=== PATIENT | male | born 1940 | race Caucasian/White ===

== ENCOUNTER 2016-05-03 11:31 | Inpatient (IN) | payer MEDICARE, BC ==
[2016-05-03] MEDS ORDERED: SODIUM CHLORIDE 0.9% 1,000 ML IV STA ×2 (12:28)
[2016-05-03] MEDS ORDERED: ONDANSETRON 4 MG/2 ML VIAL IVP STA (12:28)
[2016-05-03] MEDS ORDERED: PANTOPRAZOLE 40 MG/10 ML VIAL IVP STA (12:28)
[2016-05-03] MEDS ORDERED: HYDROmorphone 1 MG/ML 1 ML SYRINGE IVP STA (12:28)
[2016-05-03 13:02] LABS: Basophils % (A) 0 %; CH 30.5; Eosinophils # (A) 0.1 k/uL (0-0.7); Eosinophils % (A) 1 %; HCT 43.7 % (39.0-53.0); HDW 2.56; HGB 14.1 gm/dL (13.0-17.5); Luc % (Auto) 1; Lymphocytes # (A) 0.4 k/uL (1.0-4.8); Lymphocytes % (A) 2 %; MCHC 32.3 g/dL (31.0-37.0); MCV 95.8 fL (80.0-100.0); Monocytes # (A) 0.7 k/uL (0-1.0); Monocytes % (A) 5 %; Neutrophils # (A) 12.9 k/uL (1.3-7.7); Neutrophils % (A) 91 %; RBC 4.56 m/uL (4.30-5.90); RDW 12.4 % (11.5-15.5); WBC 14.2 k/uL (3.8-10.6); WBC (Perox) 14.66
[2016-05-03 13:11] LABS: INR 1.2 (<1.1); Prothrombin Time 12.3 sec (9.0-12.0)
[2016-05-03 13:12] LABS: ALT 38 U/L (21-72); AST 20 U/L (17-59); Alkaline Phosphatase 127 U/L (38-126); Amylase <30 U/L (30-110); Anion Gap 13 mmol/L; Blood Urea Nitrogen 44 mg/dL (9-20); Calcium 12.2 mg/dL (8.4-10.2); Carbon Dioxide 27 mmol/L (22-30); Chloride 97 mmol/L (98-107); Glucose 323 mg/dL (74-99); Non-African American GFR(MDRD) 52 (>60 ml/min/1.73 sqM); Potassium 4.5 mmol/L (3.5-5.1); Sodium 137 mmol/L (137-145); Total Bilirubin 0.7 mg/dL (0.2-1.3); Total Protein 5.8 g/dL (6.3-8.2)
--- NOTE | 2016-05-03 13:13 | ED ---
General Adult HPI - General Chief complaint: Abdominal Pain Stated complaint: poss Bowel Obstruction Time Seen by Provider: 05/03/16 11:54 Source: patient, family, EMS, RN notes reviewed, old records reviewed Mode of arrival: EMS Limitations: no limitations - History of Present Illness Initial comments: Chief complaint history of present illness is a 75-year-old male who within the past several weeks is a cholecystectomy. Because of persistent abdominal pain a CAT scan with contrast was done which revealed probable pancreatic cancer with metastatic lesions to the liver. The patient's been on opiates for pain of both recent surgery and intestinal cramping from constipation. The patient' s not obstipated. No bowel movement for approximately one week. Abdomen is more bloated. - Related Data Home Medications Medication Instructions Recorded Confirmed Atorvastatin [Lipitor] 40 mg PO HS 04/08/16 05/03/16 Insulin Detemir [Levemir Flextouch] 24 units SQ HS 04/08/16 05/03/16 LORazepam [Ativan] 1 mg PO HS 04/08/16 05/03/16 Metoprolol Succinate (ER) [Toprol 25 mg PO DAILY 04/08/16 05/03/16 XL] Nitroglycerin Sl Tabs [Nitrostat] 0.4 mg SUBLINGUAL Q5M PRN 04/08/16 05/03/16 Terazosin [Hytrin] 5 mg PO HS 04/08/16 05/03/16 Valsartan/Hydrochlorothiazide 1 tab PO DAILY 04/08/16 05/03/16 [Valsartan-Hctz 80-12.5 mg Tab] Sennosides-Docusate Sodium 2 tab PO BID 05/03/16 05/03/16 [Senokot-S] Previous Rx's Medication Instructions Recorded Pantoprazole Sodium [Protonix] 40 mg PO DAILY #30 tablet. 04/25/16 HYDROcodone/APAP [[place] Elixir 15 ml PO Q4HR PRN #500 ml 04/28/16 7.5-325Mg/15Ml] Polyethylene Glycol 3350 [Miralax] 17 gm PO DAILY PRN #15 packet 04/28/16 traMADol HCl [Ultram] 50 mg PO QID PRN #30 tab 04/28/16 Ondansetron Odt [Zofran Odt] 4 mg PO Q8HR PRN #30 tab 04/29/16 Allergies Allergy/AdvReac Type Severity Reaction Status Date / Time hydrocodone [From [place]] AdvReac Hallucinati Verified 05/03/16 11:36 ons Review of Systems ROS Statement: Those systems with pertinent positive or pertinent negative responses have been documented in the HPI. Review of systems. The patient is pale he's taken significant turn for the worse per his family in the last 2 days. Continues with abdominal pain no bowel movements. Not eating or drinking appears to be dehydrated. Very weak and unable to stand or get up. Complains of chronic back pain from laying down constantly. The patient has an appointment to follow-up at [facility] in 2 days but does not feel he can go all systems reviewed. Past medical problems significant for being a former smoker. Also coronary disease, diabetes mellitus, hyperlipidemia, hypertension previous [place]. Enlarged prostate. Patient's surgeries include cholecystectomy several weeks ago had a cardiac bypass. Heart catheterizations. Family history not respiratory. ROS Other: All systems not noted in ROS Statement are negative. Past Medical History Past Medical History: Coronary Artery Disease (CAD), Diabetes Mellitus, Hyperlipidemia, Hypertension, Myocardial Infarction ([place]) Additional Past Medical History / Comment(s): ,ENLARGED PROSTATE,MAC DEGENERATION, PAST CONCUSSIONS,HAS HAD A SHINGLE VACCINE APPROX 2012 CONSTIPATED -PT STATED NO BM SINCE SX 04-08-16. STATED"LOST 10# SINCE SX ON 04-08-16 Last Myocardial Infarction Date:: 13 YEARS AGO History of Any Multi-Drug Resistant Organisms: None Reported Past Surgical History: Cholecystectomy, Coronary Bypass/CABG Additional Past Surgical History / Comment(s): HEART CATHS AND 6 OR 7 STENTS BEFORE CABG IN 2002. PT STATED THAT AFTER CABG HAS TO BE "CARDIOVERTED", JESSE CATARACTS, SHOTS IN EYES FOR MAC DEGENRATION, COLONOSCOPY/POLYPECTOMY(BENIGN) Past Anesthesia/Blood Transfusion Reactions: Unable to Obtain Additional Past Anesthesia/Blood Transfusion Reaction / Comment(s): CLAUSTERPHOBIA Date of Last Stent Placement:: UNK Past Psychological History: No Psychological Hx Reported Additional Psychological History / Comment(s): PT LIVES WITH , IS INDEPENDANT. SERVED IN THE [employer]. 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 Smoking Status: Former smoker Past Alcohol Use History: None Reported Additional Past Alcohol Use History / Comment(s): STARTED SMOKING AGE 13, QUIT 1981 WAS SMOKING 2 PPD.QUIT ETOH 1981 Past Drug Use History: None Reported - Past Family History Father Family Medical History: Unable to Obtain Additional Family Medical History / Comment(s): PT WAS ADOPTED Mother Family Medical History: Unable to Obtain Additional Family Medical History / Comment(s): PT WAS ADOPTED General Exam - General Exam Comments Initial Comments: General: The patient is awake and alert, appears pale and uncomfortable. Appears dehydrated. Vital signs show temperature 97.0 pulse 93 respiratory rate 20 pulse ox 90% room air blood pressure 174/74. Elevated systolic noted. Eye: Pupils are equal, round and reactive to light, extra-ocular movements are intact ; there is normal conjunctiva bilaterally. No signs of icterus. Ears, nose, mouth and throat: Dry mucous membranes. Neck: No complaint of neck pain. Cardiovascular: No murmur appreciated. Heart rate 93. Respiratory: Lungs are clear to auscultation, respirations are non-labored, breath sounds are equal. No wheezes, stridor, rales, or rhonchi. Gastrointestinal: Abdomen is bloated, tender. The trocar sites all appear to be normal no signs of infection. Hypoactive bowel sounds. Guarding with palpation of the abdomen. Back: Complains of back pain from staying in bed for one week. Unable to get himself out of bed needs help. Musculoskeletal: Normal ROM, no tenderness, There is no pedal edema. There is no calf tenderness or swelling. Sensation intact. Pulses equal bilaterally 2+. Neurological: Neurologically no deficits noted. Skin: Pale skin Limitations: no limitations Course Vital Signs 05/03/16 05/03/16 05/03/16 11:40 13:57 14:17 Temperature 97 F L 98.2 F Pulse Rate 93 67 82 Respiratory 20 18 18 Rate Blood Pressure 174/74 157/70 163/71 O2 Sat by Pulse 94 L 94 L 94 L Oximetry Medical Decision Making - Medical Decision Making X-rays of the abdomen were done and reviewed radiologist's his impression is there are multiple gas filled distended loops of small bowel in the mid abdomen. There is blunting of the costophrenic angles. There is no sign of free air. There are no pathologic calcifications over the kidneys. Conclusion ; dilated small bowel in the mid abdomen consistent with ileus or partial mechanical obstruction. A large bowel gas pattern is normal. Abnormal small bowel appears new compared to last exam. As read by Dr. Wong Labs show white count of 14 hemoglobin 14 hematocrit of 43, INR 1.2, potassium 4.5, BUN 44 creatinine 1. three fourths GFR 52. Glucose is 323. Amylase lipase normal limits. The case discussed with Dr. Dr. Diaz on-call for Dr. dr mayer. Patient be admitted to medicine. He recommends NG tube and enemas for obstipation. - Lab Data Result diagrams: 05/03/16 12:43 05/03/16 12:43 Lab Results 05/03/16 05/03/16 05/03/16 Range/Units 12:43 12:43 12:43 WBC 14.2 H (3.8-10.6) k/uL RBC 4.56 (4.30-5.90) m/uL Hgb 14.1 (13.0-17.5) gm/dL Hct 43.7 (39.0-53.0) % MCV 95.8 (80.0-100.0) fL MCH 31.0 (25.0-35.0) pg MCHC 32.3 (31.0-37.0) g/dL RDW 12.4 (11.5-15.5) % Plt Count 124 L (150-450) k/uL Neutrophils % 91 % Lymphocytes % 2 % Monocytes % 5 % Eosinophils % 1 % Basophils % 0 % Neutrophils # 12.9 H (1.3-7.7) k/uL Lymphocytes # 0.4 L (1.0-4.8) k/uL Monocytes # 0.7 (0-1.0) k/uL Eosinophils # 0.1 (0-0.7) k/uL Basophils # 0.0 (0-0.2) k/uL PT (9.0-12.0) sec INR (<1.1) Sodium 137 (137-145) mmol/L Potassium 4.5 (3.5-5.1) mmol/L Chloride 97 L (98-107) mmol/L Carbon Dioxide 27 (22-30) mmol/L Anion Gap 13 mmol/L BUN 44 H (9-20) mg/dL Creatinine 1.34 H (0.66-1.25) mg/dL Est GFR (MDRD) Af Amer >60 (>60 ml/min/1.73 sqM) Est GFR (MDRD) Non-Af 52 (>60 ml/min/1.73 sqM) Glucose 323 H (74-99) mg/dL Plasma Lactic Acid [place]dy 1.6 (0.7-2.0) mmol/L Calcium 12.2 H (8.4-10.2) mg/dL Total Bilirubin 0.7 (0.2-1.3) mg/dL AST 20 (17-59) U/L ALT 38 (21-72) U/L Alkaline Phosphatase 127 H (38-126) U/L Ammonia <9 (<30) umol/L Total Protein 5.8 L (6.3-8.2) g/dL Albumin 2.5 L (3.5-5.0) g/dL Amylase <30 L (30-110) U/L Lipase 12 L (23-300) U/L 05/03/16 Range/Units 12:43 WBC (3.8-10.6) k/uL RBC (4.30-5.90) m/uL Hgb (13.0-17.5) gm/dL Hct (39.0-53.0) % MCV (80.0-100.0) fL MCH (25.0-35.0) pg MCHC (31.0-37.0) g/dL RDW (11.5-15.5) % Plt Count (150-450) k/uL Neutrophils % % Lymphocytes % % Monocytes % % Eosinophils % % Basophils % % Neutrophils # (1.3-7.7) k/uL Lymphocytes # (1.0-4.8) k/uL Monocytes # (0-1.0) k/uL Eosinophils # (0-0.7) k/uL Basophils # (0-0.2) k/uL PT 12.3 H (9.0-12.0) sec INR 1.2 (<1.1) Sodium (137-145) mmol/L Potassium (3.5-5.1) mmol/L Chloride (98-107) mmol/L Carbon Dioxide (22-30) mmol/L Anion Gap mmol/L BUN (9-20) mg/dL Creatinine (0.66-1.25) mg/dL Est GFR (MDRD) Af Amer (>60 ml/min/1.73 sqM) Est GFR (MDRD) Non-Af (>60 ml/min/1.73 sqM) Glucose (74-99) mg/dL Plasma Lactic Acid [place]dy (0.7-2.0) mmol/L Calcium (8.4-10.2) mg/dL Total Bilirubin (0.2-1.3) mg/dL AST (17-59) U/L ALT (21-72) U/L Alkaline Phosphatase (38-126) U/L Ammonia (<30) umol/L Total Protein (6.3-8.2) g/dL Albumin (3.5-5.0) g/dL Amylase (30-110) U/L Lipase (23-300) U/L Disposition Clinical Impression: Obstipation, History of recent surgery, Pancreatic tumor Disposition: ADMITTED IP TO THIS [facility] Condition: Serious
[2016-05-03 13:22] LABS: Ammonia <9 umol/L (<30)
--- NOTE | 2016-05-03 14:07 | XR ---
EXAMINATION TYPE: XR abdomen 2V DATE OF EXAM: 05/03/2016 1:20 PM COMPARISON: 04/23/2016 HISTORY: Abdominal pain Technique 3 views Findings: There are multiple gas-filled distended loops of small bowel in the midabdomen. There is bl unting of the costophrenic angles. There is no sign of free air. There are no pathologic calcificatio ns over the kidneys. Conclusion: Dilated small bowel in the midabdomen consistent with ileus or partial mechanical obstruc tion. The large bowel gas pattern is normal. Abnormal small bowel appears new compared to last exam.
[2016-05-03] MEDS ORDERED: LORazepam 2 MG/ML SYRINGE IV STA (14:18)
[2016-05-03] MEDS ORDERED: ONDANSETRON 4 MG/2 ML VIAL IVP PRN (15:02)
[2016-05-03] MEDS ORDERED: NALOXONE 0.4 MG/ML 1 ML VIAL IV PRN (15:02)
[2016-05-03 16:13] LABS: Appearance,Urine Clear (Clear); Bilirubin,Urine Negative (Negative); Glucose,Urine (UA) 3+ (Negative); Ketones,Urine 1+ (Negative); Leukocyte Esterase,Urine Negative (Negative); Mucus,Urine Rare /hpf; Nitrite,Urine Negative (Negative); PH, Urine 5.5 (5.0-8.0); Particle Count 6552; Protein,Urine 1+ (Negative); RBC,Urine 3 /hpf (0-5); Specific Gravity,Urine 1.022 (1.001-1.035); Squamous Epithelial Cell,Urine <1 /hpf (0-4); UA Billing (MACRO vs. MICRO) MICRO; Urobilinogen,Urine <2.0 mg/dL (<2.0); WBC,Urine 1 /hpf (0-5)
[2016-05-03 17:20] LABS: Glucose,Whole Blood 290 mg/dL (75-99)
[2016-05-03] MEDS: SODIUM CHLORIDE 0.9% 1,000 ML IV SCH (17:37)
[2016-05-03] MEDS: LORazepam 2 MG/ML SYRINGE IV PRN ×2 (17:37→23:51)
[2016-05-03] MEDS ORDERED: NA PHOS,M-B/NA PHOS,DI-BA 133 ML ENEMA RECTAL ONE (17:57)
[2016-05-03] MEDS: INSULIN LISPRO (humaLOG) 300 UNIT/3 ML VIAL SQ SCH (18:19)
[2016-05-03] MEDS: HYDROmorphone 1 MG/ML 1 ML SYRINGE IV PRN (18:30)
[2016-05-03 22:16] LABS: Glucose,Whole Blood 265 mg/dL (75-99)
[2016-05-03] MEDS ORDERED: RX INFO: IV CONTRAST WAS GIVEN 1 EACH MISC MISCELLANE PRN (23:26)
[2016-05-04] MEDS: INSULIN LISPRO (humaLOG) 300 UNIT/3 ML VIAL SQ SCH ×3 (00:07→12:19)
[2016-05-04 00:22] LABS: Glucose,Whole Blood 243 mg/dL (75-99)
[2016-05-04] MEDS ORDERED: cloNIDine HCL 0.1 MG TAB PO PRN (00:30)
[2016-05-04] MEDS ORDERED: LEVOFLOXACIN 500MG-D5W PMX 500 MG in DEXTROSE/WATER 1 100ML.BAG IVPB SCH (00:30)
[2016-05-04] MEDS ORDERED: hydrALAZINE HCL 20 MG/ML 1 ML VIAL IVP PRN (00:30)
[2016-05-04] MEDS: HYDROmorphone 1 MG/ML 1 ML SYRINGE IV PRN ×2 (01:26→11:05)
[2016-05-04] MEDS: HEPARIN SODIUM,PORCINE 5,000 UNIT/ML 1 ML VIAL SQ SCH ×2 (01:31→08:17)
[2016-05-04] MEDS: SODIUM CHLORIDE 0.9% 1,000 ML IV SCH ×2 (01:32→11:21)
--- NOTE | 2016-05-04 01:32 | CT ---
EXAMINATION TYPE: CT brain wo con DATE OF EXAM: 05/04/2016 1:28 AM COMPARISON: NONE HISTORY: AMS CT DLP: 1064.30 mGycm Automated exposure control for dose reduction was used. FINDINGS: There is mild cerebral cortical atrophy. There is no mass effect nor midline shift. There is no sign of intracranial hemorrhage. The calvarium is intact. IMPRESSION: Negative unenhanced head CT scan. Mild cerebral atrophy.
--- NOTE | 2016-05-04 01:38 | CT ---
EXAMINATION TYPE: CT abdomen pelvis w con DATE OF EXAM: 05/04/2016 1:28 AM COMPARISON: 04/23/2016 HISTORY: ileus, history of CA CT DLP: 2279.00 mGycm Automated exposure control for dose reduction was used. TECHNIQUE: Helical acquisition of images was performed from the lung bases through the pelvis. CONTRAST: Performed without Oral Contrast and with IV Contrast, patient injected with 80 mL of Visipaque 320. FINDINGS: There are patchy infiltrates and consolidation at the posterior lung bases. There are small pleural e ffusions. There is atherosclerotic vascular calcification. There is a moderate amount of ascites flui d throughout the abdomen. There is a Palomo catheter in the urinary bladder. Liver is relatively small and consistent with cirrhosis. Spleen appears normal. The tail of the pancr eas is not well defined. There could be a low-density mass in the tail of the pancreas. Bile ducts are not dilated. There is a clip from cholecystectomy. There is no definite adrenal mass. Kidneys show satisfactory contrast opacification. There is no hydronephrosis. There is no retroperito darryl adenopathy. There is no sign of free air. There is atherosclerotic calcification in the abdomina l aorta and iliac arteries. There is probably hemodynamically significant stenosis in the iliac arter ies. There is a 1 cm cortical cyst on the medial right kidney. IMPRESSION: THERE ARE BILATERAL PLEURAL EFFUSIONS WITH BASILAR PATCHY CONSOLIDATION AND ATELECTASIS THAT IS SIGNI FICANTLY WORSE THAN LAST EXAM. THERE IS A LARGE AMOUNT OF ASCITES FLUID AND PROBABLE CIRRHOSIS. POSSIBLE LOW DENSITY 6 CM MASS IN THE TAIL OF THE PANCREAS OR INVOLVING THE GREATER CURVATURE OF THE STOMACH. NO FREE AIR. NO EVIDENCE OF A BOWEL OBSTRUCTION. THE ASCITES FLUID IS INCREASED SIGNIFICANTLY COMPARE D TO LAST EXAM.
--- NOTE | 2016-05-04 01:39 | XR ---
EXAMINATION TYPE: XR chest 1V portable DATE OF EXAM: 05/04/2016 1:27 AM COMPARISON: NONE HISTORY: Short of breath TECHNIQUE: Single frontal view of the chest is obtained. FINDINGS: There is pulmonary vascular congestion. There is poor inspiration with some blunting of co stophrenic angles. There are sternal wires. IMPRESSION: Congestive heart failure with basilar atelectasis and probable pleural effusions. Cardio megaly.
[2016-05-04 06:17] LABS: Glucose,Whole Blood 237 mg/dL (75-99)
[2016-05-04] MEDS: LORazepam 2 MG/ML SYRINGE IV PRN ×2 (06:26→13:35)
[2016-05-04 07:39] LABS: Glucose,Whole Blood 234 mg/dL (75-99)
[2016-05-04 07:41] VITALS: BP 110/85; PULSE 91; RESP 20; TEMP 97.8
[2016-05-04] MEDS ORDERED: PANTOPRAZOLE 40 MG/10 ML VIAL IV SCH (09:00)
[2016-05-04] MEDS ORDERED: METOPROLOL SUCCINATE (ER) 25 MG TAB.ER.24H PO SCH (09:00)
[2016-05-04 09:03] LABS: ALT 38 U/L (21-72); AST 38 U/L (17-59); Alkaline Phosphatase 115 U/L (38-126); Amylase <30 U/L (30-110); Anion Gap 11 mmol/L; Blood Urea Nitrogen 45 mg/dL (9-20); Calcium 12.2 mg/dL (8.4-10.2); Carbon Dioxide 25 mmol/L (22-30); Chloride 103 mmol/L (98-107); Glucose 248 mg/dL (74-99); Non-African American GFR(MDRD) 54 (>60 ml/min/1.73 sqM); Potassium 4.2 mmol/L (3.5-5.1); Sodium 139 mmol/L (137-145); Total Bilirubin 0.5 mg/dL (0.2-1.3); Total Protein 5.2 g/dL (6.3-8.2)
--- NOTE | 2016-05-04 11:26 | P.CON ---
Consult Note - . Consult date: 05/04/16 Assessment/Plan:: The patient is 75-year-old white female who according to the has been quite ill for almost a month now. He had a laparoscopic cholecystectomy done by Dr. Salter for cholelithiasis on 04/08/2016. The states he just did not recover well subsequently. Had no appetite nausea was present with the continued abdominal pain. He was readmitted on around 1222 had an ERCP on 1225 which showed no evidence of any leakage from his bile duct obstruction. A CT at that time did show a mass in the tail of the pancreas with what looked like liver metastases. He was discharged a few days later feeling better. His states however he had not had a bowel movement for over a week. He is continued to decline. He's had increasing abdominal pain. Also nausea and continued constipation. He is quite sedated but he states he did pass a little flatus over the last several days. Also has had some shortness of breath. He had a repeat CT of his abdomen and pelvis last night which showed a lot more ascites compared to his previous computed tomography scan several weeks ago. Also it confirms the mass in the tail of the pancreas. Liver looked cirrhotic. There was no definite evidence of bowel obstruction on the computed tomography scan although his plain films showed some dilated loops of small bowel. There was no real evidence of fecal impaction on is plain films or the computed tomography scan. He did receive some enemas so since she was admitted last night but apparently there has been no results. There was no free air noted on his plain films on his computed tomography scan. Past history: Well documented. After disease status post stent placement and then subsequent CABG. Also diabetes mellitus. Medications as listed. Systems review: Not really obtainable from patient. He is not very responsive. May be sedated from some Ativan about 45 hours ago. He however denies any chest pain. Does complain of abdominal pain. Has a Palomo catheter in place. Physical examination: Patient is well-built somewhat overweight with a BMI of 30.8 kg/m. Does not appear to be jaundiced. However is a little dehydrated. Temperature was 98 9. Heart rate 104 minutes. Blood pressure 112/72. No neck masses. Abdomen is somewhat distended. Has a small hematoma at his lateral port site. Diffusely tender. Dry sterile grab my hand when I try to palpate his abdomen. Much guarding. Port sites otherwise all healed nicely. No evidence of infection. No definite mass palpable. Rectal reveals no mass or evidence of impaction. WBC is elevated at 14,200. Bilirubin is normal. Calcium is elevated. The urine and creatinine are elevated. CT as above. Impression possible sepsis.. Tender and painful lower abdomen not sure as to the etiology particularly with the normal ERCP 2 weeks ago. Ascites. Pancreatic mass with possible liver metastases probably malignant. Constipation. Ileus. Doubt obstruction. Multiple medical issues as described above. Dehydration. Renal failure. Hyperglycemia. Recommendation: Continue with the IV fluids for rehydration and IV antibiotics. Discussed with family would like the patient be transferred to a tertiary center. They in fact have an appointment at [facility] in 2 days. However I think the patient is ill enough to be transferred soon for further management and workup. We will therefore hold off with the nasogastric tube further enemas since he did not have much of a response last night.
[2016-05-04 12:06] LABS: Glucose,Whole Blood 233 mg/dL (75-99)
[2016-05-04 12:11] VITALS: BMI 30.8
[2016-05-04 12:24] LABS: Hemoglobin A1C 8.4 % (4.2-6.1)
--- NOTE | 2016-05-04 12:25 | HP ---
DATE OF ADMISSION: 05/03/2016 CHIEF COMPLAINT: Abdominal pain and bowel obstruction and constipation. HISTORY OF PRESENT ILLNESS: This 75-year-old gentleman with a past medical history of multiple medical problems such as coronary artery disease, history of diabetes, hypertension, hyperlipidemia, history of myocardial infarction, being followed by Dr. Karol Maria in the outpatient setting, recently had a cholecystectomy. Subsequently patient was admitted with features of abdominal ascites highly suspicious of pancreatic cancer. ERCP was recommended. The patient was referred to [facility]. Apparently the patient was developing obstipation and progressive abdominal distention. The patient came to [facility] and was admitted for further evaluation and treatment. Plain x-rays of the abdomen were suggestive of partial small bowel obstruction. The patient was admitted for further evaluation and treatment. The patient also was found to be confused at this time. The patient is incoherent, most of the history is obtained from discussion with staff as well as review of chart. PAST MEDICAL HISTORY: CAD, history of diabetes mellitus, hypertension, recently diagnosed possible pancreatic cancer, claustrophobia, cholecystectomy. Medications prior to admission include: 1. Ultram 50 mg q.i.d. p.r.n. 3. Hytrin 5 mg at bedtime. 4. Senokot 2 tablets p.o. b.i.d. 6. Protonix 40 mg daily. 7. Zofran 4 mg every 8 p.r.n. 8. Nitrostat 0.4 sublingual p.r.n. 9. Toprol XL 25 mg daily. 10. Ativan 1 mg at bedtime. 11. Levemir 24 units subcu at bedtime. 12. [place] 15 mL every 4 hours p.r.n. 13. Lipitor 40 mg at bedtime. ALLERGIES: HYDROCODONE. SOCIAL HISTORY: Could not be taken because of the change in mental status. The patient apparently was adopted. Previous history of smoking per chart. PHYSICAL EXAMINATION: Patient is conscious, confused. Pulse is 60, blood pressure 158/60, respirations 20, temperature 97.8, pulse ox 90% on 2 liters. HEENT: Conjunctivae normal. Oral mucosa moist. NECK: No jugular venous distention. No carotid bruit. No lymph node enlargement. CARDIOVASCULAR SYSTEM: S1, S2 muffled. No S3, no S4. RESPIRATORY: Breath sounds diminished at bases. A few scattered rhonchi and crackles. ABDOMEN: Soft, obese, distended. Mild diffuse discomfort on palpation. Laparoscopic insertion area slightly distended on the right side. Otherwise, bowel sounds diminished, resonant on percussion. LEGS: No edema, no swelling. NERVOUS SYSTEM: Higher function as mentioned earlier. Moves all 4 limbs. No focal deficits. Full exam could not be taken because of lack of cooperation. SKIN: As mentioned earlier. LYMPHATICS: No lymph nodes palpable in the neck, axillae, groin. LABS: WBC 14.2, platelets of 124, creatinine is 1.34. Amylase and lipase noted. UA noted. Glucose 323. ASSESSMENT: 1. Abdominal distention with possible acute small bowel obstruction. 2. Change in mental status, metabolic encephalopathy. 3. Increased WBC, possibly reactive, rule out sepsis. 4. Increased creatinine with possible acute renal failure, possible prerenal acute tubular necrosis. 5. Diabetes mellitus type 2, uncontrolled. 6. Hypercalcemia secondary to dehydration. 7. Hypoalbuminemia with mild to moderate protein calorie malnutrition. 8. History of possible recent pancreatic mass and pancreatic cancer. 9. History of recent cholecystectomy. 10. History of coronary artery disease. 11. Diabetes mellitus type 2. 12. Hypertension. 13. Hyperlipidemia. 14. History of benign prostatic hypertrophy. 15. History of contractions. 16. History of constipation. 17. History of coronary artery disease, coronary artery bypass grafting. 18. History of cataract. 19. Remote history of nicotine dependence. 20. FULL CODE. RECOMMENDATIONS/DISCUSSION: This 76-year-old gentleman who presented with multiple complex medical issues, we will monitor the patient closely. Continue the current medications. Continue symptomatic treatment. Otherwise, we will obtain surgery consultation. I would also recommend empiric antibiotics. Obtain cultures. Other than that, prognosis guarded because of multiple complex medical issues. Further recommendations to follow. Repeat CT scan may be obtained. See orders for details. Discussed with staff. Further recommendations to follow. MTDD
[2016-05-04] MEDS ORDERED: INSULIN DETEMIR 100 UNIT/ML 10 ML VIAL SQ SCH (21:00)
--- NOTE | 2016-05-05 05:10 | DS ---
DATE OF ADMISSION: 05/03/2016 DATE OF DISCHARGE: 05/04/2016 FINAL DIAGNOSES: 1. Abdominal distention with ascites and possible acute small bowel obstruction. 2. Possible pancreatic cancer, rule out mets. 3. Change in mental status, metabolic encephalopathy. 4. Increased WBC, possibly reactive, possible sepsis. 5. Increased creatinine with possible acute renal failure, possible prerenal, acute tubular necrosis. 6. Diabetes mellitus type 2, uncontrolled. 7. Hypercalcemia secondary to dehydration. 8. Hypoalbuminemia with mild to moderate protein calorie malnutrition. 9. History of possible recent pancreatic mass and pancreatic cancer worked at [facility]. 10. History of recent cholecystectomy. 11. History of coronary artery disease. 12. Diabetes mellitus type 2. 13. Hypertension. 14. Hyperlipidemia. 15. History of benign prostatic hypertrophy. 16. History of constipation. 17. History of coronary artery disease, coronary artery bypass graft. 18. History of cataracts. 19. Remote history of nicotine dependence. 20. FULL CODE. The patient is transferred to [facility] in stable condition with guarded prognosis. Total time taken 35 minutes. HISTORY OF PRESENT ILLNESS: This 75-year-old gentleman with a past medical history of multiple medical problems being followed by Dr. Karol Maria in he outpatient setting admitted with abdominal pain, swelling and as well as constipation and bowel obstruction. The patient had a CAT scan, it showed multiple abnormalities. Patient was seen by Dr. Diaz who recommended the patient to be transferred to [facility] because of the extensive complex nature of the patient's illness. The patient has also been followed up and worked at [facility] previously. The prognosis remains guarded, but stable at this time. The current medications were as follows: Catapres p.r.n., heparin, Apresoline, Dilaudid, Levemir, Humalog, Levaquin, metoprolol, Zofran, Protonix.
== END 2016-05-04 14:05 | disposition short-term general hospital (02) | DRG 871 ==
LOC: EC 11:31 → 4MS4W 15:02
PROVIDERS: ADMIT Hospitalist; ATTEND Hospitalist
PROC: 0T9B70Z Drainage of Bladder with Drainage Device, Via Natural or Artificial Opening (ICD-10-PCS; principal; 2016-05-03)
DX: A41.9 Sepsis, unspecified organism (principal); G93.41 Metabolic encephalopathy; N17.0 Acute kidney failure with tubular necrosis; K56.60 Unspecified intestinal obstruction; E44.0 Moderate protein-calorie malnutrition; C25.2 Malignant neoplasm of tail of pancreas; R18.8 Other ascites; C78.7 Secondary malignant neoplasm of liver and intrahepatic bile duct; R17 Unspecified jaundice; I25.10 Atherosclerotic heart disease of native coronary artery without angina pectoris; E11.65 Type 2 diabetes mellitus with hyperglycemia; K59.00 Constipation, unspecified; I10 Essential (primary) hypertension; I25.2 Old myocardial infarction; E88.09 Other disorders of plasma-protein metabolism, not elsewhere classified; E86.0 Dehydration; E83.52 Hypercalcemia; G89.29 Other chronic pain; R14.0 Abdominal distension (gaseous); M54.9 Dorsalgia, unspecified; R06.02 Shortness of breath; E78.5 Hyperlipidemia, unspecified; F40.240 Claustrophobia; R11.0 Nausea; N40.0 Benign prostatic hyperplasia without lower urinary tract symptoms; H35.30 Unspecified macular degeneration; Z79.4 Long term (current) use of insulin; Z95.5 Presence of coronary angioplasty implant and graft; Z95.1 Presence of aortocoronary bypass graft; Z87.891 Personal history of nicotine dependence; Z90.49 Acquired absence of other specified parts of digestive tract; Z87.820 Personal history of traumatic brain injury; Z79.891 Long term (current) use of opiate analgesic; Z79.899 Other long term (current) drug therapy; Z88.5 Allergy status to narcotic agent; Z86.010 Personal history of colon polyps; Z98.42 Cataract extraction status, left eye; Z98.41 Cataract extraction status, right eye; Z68.30 Body mass index [BMI] 30.0-30.9, adult; Z98.890 Other specified postprocedural states
CPT/HCPCS: 36415; 70450; 71010; 74020; 74177; 80053; 81001; 82140; 82150; 83036; 83605; 83690; 85025; 85610; 87040; 87086; 96361; 96374; 96375; 99285